=== PATIENT | male | born 1995 | race Caucasian/White ===

== ENCOUNTER 2020-01-29 21:03 | Emergency (ER) | payer BC, OTHER ==
[~2020-01-29] VITALS: Ht 188 cm; Wt 108.0 kg
--- OUTSIDE RECORDS SUMMARY | 2020-01-29 21:09 | XMS REPORT | Continuity of Care Document ---
Author Organization Unknown Address Unknown Phone Unavailable Allergies There is no data. Medications There is no data. Problems There is no data. Procedures There is no data. Results There is no data. Encounters ACCT No. Visit Date/Time Discharge Status Pt. Type Provider Facility Loc./Unit Complaint [id number] 03/05/2018 15:45:00 03/05/2018 23:59: 59 [facility]
[2020-01-29] MEDS ORDERED: morphine INJ 10 MG/ML 1ML (SYR OR VIAL) IVP STA ×2 (21:19→21:39)
[2020-01-29] MEDS ORDERED: ONDANSETRON 4 MG/2 ML (SDV) Z0FRAN IVP ONE (21:30)
--- NOTE | 2020-01-29 21:49 | ED Upper Extremity ---
General Chief Complaint: Upper Extremity Stated Complaint: SHOULDER PAIN Nursing Triage Note: PT TO ROOM FS02 VIA W/C WITH C/O RIGHT SHOULD PAIN. PT STATES HE WAS STEER WRESTLING AND INJURED SHOULDER. Nursing Sepsis Screen: No Definite Risk History of Present Illness Date Seen by Provider: Jan 29, 2020 Time Seen by Provider: 21:20 Initial Comments Patient is a 24-year-old left-handed male who presents with left shoulder injury. Patient was wrestling a stair when this tear pulled up on his right elbow causing a popping sensation in the patient's right shoulder with loss of mobility and deformity laxity of the right shoulder socket. The injury occurred just prior to the arrival. Pain is described as dull and rated 10 out of 10. Sensation and distal motor function are intact. On exam, the patient has a sunken right glenoid humeral joint with humeral head palpable glenoid fossa. Motor function is intact. No other injuries or pain complaints reported. No prior shoulder injuries. Patient last drank 1 hour prior to ED arrival last 1 hour PT ED arrival and last ate 4 hours prior to ED arrival. Onset: just prior to arrival Pain/Injury Location: left shoulder Method of Injury: direct blow Modifying Factors: Improves With Immobilization, Improves With Jarring Allergies and Home Medications Allergies Coded Allergies: No Known Allergies (Verified Allergy, Unknown, 01/29/20) Patient Home Medication List Home Medication List Reviewed: Yes Review of Systems Constitutional: no symptoms reported EENTM: no symptoms reported Respiratory: no symptoms reported Cardiovascular: no symptoms reported Gastrointestinal: no symptoms reported Genitourinary: no symptoms reported Musculoskeletal: see HPI Psychiatric/Neurological: Denies Tingling, Denies Weakness Past [id number] Hx Past Med/Social Hx: Reviewed Nursing Past Med/Soc Hx Patient Social History Alcohol Use: Denies Use Recreational Drug Use: No Smoking Status: Never a Smoker 2nd Hand Smoke Exposure: No Recent Foreign Travel: No Contact w/Someone Who Travel: No Recent Infectious Disease Expo: No Recent Hopitalizations: No Physical Abuse: No Sexual Abuse: No Mistreated: No Fear: No Seasonal Allergies Seasonal Allergies: No Past Medical History Surgeries: Yes (GROIN) Respiratory: No Cardiac: No Neurological: No Genitourinary: No Gastrointestinal: No Musculoskeletal: No Endocrine: No HEENT: No Cancer: No Psychosocial: No Integumentary: No Blood Disorders: No Physical Exam Vital Signs Vital Signs - First Documented 01/29/20 21:17 Temp 36.5 Pulse 63 Resp 18 B/P (MAP) 148/88 (108) O2 Delivery Room Air Capillary Refill : Less Than 3 Seconds Height, Weight, BMI Height: '" Weight: lbs. oz. kg; 30.00 BMI Method: General Appearance: moderate distress (secondary to pain) HEENT: PERRL/EOMI, pharynx normal Neck: non-tender, full range of motion, supple, normal inspection Respiratory: lungs clear, normal breath sounds Gastrointestinal: soft Shoulder: deformity (sunken R glenoid hemural joint with humeral head palpable to glenoid.), limited ROM, soft tissue tenderness, swelling Neurologic/Tendon: normal sensation Neurologic/Psychiatric: no motor/sensory deficits Procedures/Interventions Splinting and Joint Reduction : Location: R shoulder Pre-Proc Neuro Vasc Exam: normal Post-Proc Neuro Vasc Exam: normal Progress Or adequate level of analgesia, the patient's forearm was fully extended with wrist and pronated position with arm extended brought her range of motion until palpable sensation was felt and the humeral head return to socket. Post imaging was ordered to confirm relocation. Joint Reduction Site: shoulder (R) Reduction Attempts: 1 Pre-Procedure NV Exam: Yes post joint reduction film: joint reduced Arm Sling: Large Progress/Results/Core Measures Results/Orders My Orders Orders - AGATA FLORES DO Morphine Injection (Morphine Injection (01/29/20 21:19) Ondansetron Injection (Zofran Injectio (01/29/20 21:30) Shoulder 2 View Right (01/29/20 21:36) Morphine Injection (Morphine Injection (01/29/20 21:39) Medications Given in ED Current Medications Medications Dose Ordered Sig/Chris Route Start Time Stop Time Status Last Admin Dose Admin Ondansetron HCl 8 mg ONCE ONCE IVP 01/29/20 21:30 01/29/20 21:31 DC 01/29/20 21:40 8 MG Vital Signs/I&O 01/29/20 21:17 Temp 36.5 Pulse 63 Resp 18 B/P (MAP) 148/88 (108) O2 Delivery Room Air Blood Pressure Mean: 108 Departure Communication (Admissions) Successful relocation of right shoulder. Patient immobilized. Will have follow up with PCP and orthopedic surgeon for further management and restrictions. Impression Primary Impression: Dislocation of shoulder, right, closed Disposition: HOME, SELF-CARE Condition: Stable Departure-Patient Inst. Decision time for Depature: 21:53 Referrals: ASHA DECKER MD Patient Instructions: Shoulder Dislocation Add. Discharge Instructions: Please wear a shoulder sling take ibuprofen for pain and tramadol as needed for additional pain relief. Avoid right arm and shoulder use until cleared by local orthopedic surgeon. All discharge instructions reviewed with patient and/or family. Voiced understanding. Scripts Tramadol HCl (Tramadol HCl) 50 Mg Tablet 50 MG PO Q6H PRN for PAIN for 3 Days, #15 TAB 0 Refills Prov: AGATA FLORES DO 01/29/20 AGATA FLORES DO Jan 29, 2020 21:49
[2020-01-29] MEDS ORDERED: TRM50T PO (21:54)
[2020-01-29 22:15] VITALS: BP 121/69
--- NOTE | 2020-01-29 22:21 | Diagnostic Imaging Report ---
INDICATION: Wrestling injury. Postreduction imaging EXAMINATION: Right shoulder 01/29/2020 FINDINGS: Two views of the shoulder with no pre-reduction imaging available. There does appear to be some lucency in the superolateral aspect of the humeral head, likely small Hill-Sachs deformity. Minimal inferior subluxation of the humeral head is seen perhaps due to a joint effusion but no dislocations seen on these 2 images provided. The remaining visualized structures unremarkable. IMPRESSION: 1. Likely Hill-Sachs deformity with no dislocation at this time. Dictated on workstation # [id number]
== END 2020-01-29 22:15 | disposition home or self-care (01) ==
LOC: ER FS 21:05
DX: S43.004A Unspecified dislocation of right shoulder joint, initial encounter (principal); X50.9XXA Other and unspecified overexertion or strenuous movements or postures, initial encounter; Y93.72 Activity, wrestling
CPT/HCPCS: 73030; 99283; A4565

== ENCOUNTER → 2020-02-09 | Outpatient (CLI) | payer BC ==
[~2020-02-09] MED LIST: TRM50T PO
--- NOTE | 2020-02-09 11:51 | Diagnostic Imaging Report ---
INDICATION: Right shoulder dislocation 1.5 weeks ago. COMPARISON: 01/29/2020. FINDINGS: Two views of the right shoulder demonstrate normal glenohumeral and acromioclavicular alignment. The acromiohumeral space is normal. No fracture or dislocation is seen. IMPRESSION: No acute bony abnormality is detected. Dictated by: Dictated on workstation # [id number]
== END ==
LOC: ORTHO 09:57
PROVIDERS: ATTEND Orthopaedic Surgery
DX: S43.084A Other dislocation of right shoulder joint, initial encounter (principal)
CPT/HCPCS: 73030